=== PATIENT | female | born 1950 | race Caucasian/White ===

== ENCOUNTER 2017-09-09 13:01 | Emergency (ER) | payer MEDICARE ==
[2017-09-09 14:38] VITALS: BP 146/75
--- NOTE | 2017-09-09 14:47 | UC ---
Lower Extremity/Ankle HPI - HPI Summary HPI Summary: Kicked her dog yesterday who was soiling in the house, possibly kicked leg of table. Immediate pain and swelling and pain with weight bearing since then. - History of Current Complaint Chief Complaint: UCLowerExtremity Stated Complaint: FOOT INJURY Time Seen by Provider: 09/09/17 14:36 Hx Obtained From: Patient Onset/Duration: Sudden Onset Severity Initially: Moderate Severity Currently: Moderate Pain Intensity: 8 Aggravating Factor(s): Standing, Ambulation Alleviating Factor(s): Rest, Elevation Able to Bear Weight: Yes - Risk Factors Gout Risk Factors: Negative DVT Risk Factors: Negative Septic Arthritis Risk Factor: Negative - Allergies/Home Medications Allergies/Adverse Reactions: Allergies Allergy/AdvReac Type Severity Reaction Status Date / Time amoxicillin Allergy Rash Verified 09/09/17 14:32 Penicillins Allergy Rash Verified 09/09/17 14:32 'cillins Allergy Rash Uncoded 09/09/17 14:32 Home Medications: Home Medications Budesonide/Formote 160/4.5(NF) [Symbicort 160/4.5 (NF)] 2 puff INH BID 09/09/17 [History Confirmed 09/09/17] Denosumab(NF) [Prolia(NF)] 1 inj SEE INSTRUCTIONS 09/09/17 [History Confirmed ] Levothyroxine TAB* [Synthroid TAB*] 50 mcg PO DAILY 09/09/17 [History Confirmed 09/09/17] Nitroglycerin [Nitrostat] 1 tab ONCE PRN 09/09/17 [History Confirmed 09/09/17] Roflumilast [Daliresp] 1 cap DAILY 09/09/17 [History Confirmed 09/09/17] Simvastatin 20 mg PO DAILY 09/09/17 [History Confirmed 09/09/17] Tiotropium CAP.INH* [Spiriva CAP.INH*] 1 inh DAILY 09/09/17 [History Confirmed 09/09/17] PMH/Surg Hx/FS Hx/Imm Hx - Additional Past Medical History Additional PMH: osteoporosis Endocrine History: Hypothyroidism, Dyslipidemia Cardiovascular History: Cardiac Disease - history of [place] Respiratory History: COPD - Surgical History Surgical History: Yes Surgery Procedure, Year, and Place: Back surgery- fused L4/L5 - Family History Known Family History: Positive: Cardiac Disease - parents, grandparents, all of her sibs have CAD - Social History Occupation: Retired Alcohol Use: None Substance Use Type: None Smoking Status (MU): Never Smoked Tobacco Review of Systems Constitutional: Negative Skin: Negative Eyes: Negative ENT: Negative Respiratory: Other - controlled copd Cardiovascular: Other - controlled risk factors for heart disease. Gastrointestinal: Negative Genitourinary: Negative Motor: Negative Neurovascular: Negative Musculoskeletal: Decreased ROM, Edema Neurological: Negative Psychological: Negative All Other Systems Reviewed And Are Negative: Yes Physical Exam Triage Information Reviewed: Yes Appearance: Well-Appearing, Pain Distress - moderate with weight bearing. Vital Signs: Initial Vital Signs Temp 97.6 F 09/09/17 14:30 Pulse 75 09/09/17 14:30 Resp 16 09/09/17 14:30 BP 146/75 09/09/17 14:30 Pulse Ox 97 09/09/17 14:30 Vital Signs Reviewed: Yes Respiratory: Positive: Lungs clear, Normal breath sounds Cardiovascular: Positive: RRR, No Murmur Musculoskeletal: Positive: ROM Intact - at right ankle and right subtalar joint. , Other: - swelling and ecchymosis across top of foot. Neurological Exam: Normal Psychological Exam: Normal Skin Exam: Other - bruising right foot Diagnostics - Laboratory Diagnostic Studies Completed/Ordered: Xray negative for fracture. Reviewed report showing no fracture, "negative examination" per Dr. Nguyen. Lower Extremity Course/Dx - Course Course Of Treatment: ice, elevation, acetaminophen for pain control. - Differential Dx/Diagnosis Differential Diagnosis/HQI/PQRI: Contusion, Sprain, Strain Provider Diagnoses: contusion right foot. Discharge - Sign-Out/Discharge Documenting (check all that apply): Discharge/Admit/Transfer - Discharge Plan Condition: Stable Disposition: HOME Patient Education Materials: Foot Contusion (ED) Referrals: Steven Gomez MD [Primary Care Provider] - Additional Instructions: Continue acetaminophen for pain control. Elevation and ice as discussed for comfort, but you can put weight through the foot. anticipate 7 to 10 days for healing, with increase in bruising over the next several days. - Billing Disposition and Condition Condition: STABLE Disposition: Home
--- NOTE | 2017-09-09 15:20 | RAD ---
INDICATION: Right foot injury COMPARISON: None TECHNIQUE: AP, lateral, and oblique views were obtained. FINDINGS: The bony structures, joint spaces, and soft tissues are normal for age. IMPRESSION: NEGATIVE EXAMINATION.
== END 2017-09-09 15:39 | disposition home or self-care (01) ==
LOC: UCCORT 13:01
DX: S90.31XA Contusion of right foot, initial encounter (principal); W22.8XXA Striking against or struck by other objects, initial encounter; Y93.89 Activity, other specified; Y92.009 Unspecified place in unspecified non-institutional (private) residence as the place of occurrence of the external cause; Z88.0 Allergy status to penicillin; E03.9 Hypothyroidism, unspecified; I25.2 Old myocardial infarction; I51.9 Heart disease, unspecified; J44.9 Chronic obstructive pulmonary disease, unspecified; E78.5 Hyperlipidemia, unspecified
CPT/HCPCS: 99201; G0463